=== PATIENT | female | born 1980 | race Caucasian/White ===

== ENCOUNTER 2020-10-19 15:38 | Emergency (ER) | payer OTHER ==
[2020-10-19] MEDS ORDERED: Ondansetron PF 4 MG/2 ML Vial ONE (16:01)
[2020-10-19] MEDS ORDERED: Ketorolac Tromethamine 30 MG/ML VIAL ONE (16:01)
[2020-10-19 16:12] LABS: #Basophils 0.1 10x3/uL (0.0-0.2); #Eosinphils 0.5 10x3/uL (0.0-0.5); #Monocytes 0.6 10x3/uL (0.0-1.1); #Neutrophils 7.9 10x3/uL (1.5-8.4); %Basophils 0.5 % (0.0-2.0); %Eosinophils 3.7 % (0.0-6.0); %Monocytes 4.6 % (0.0-10.0); %Neutrophils 61.7 % (40.0-75.0); Hemoglobin 13.4 g/dL (12.0-15.5); Mean Corpuscular HGB CONC 31.8 g/dL (32.0-36.0); Mean Corpuscular Volume 81.6 fl (81.6-98.3); Mean Platelet Volume 10.5 fl (7.4-10.4); Platelet Count 372 10x3/uL (150-450); RBC Distribution Width 14.4 % (11.5-14.5); Red Blood Cell (RBC) Count 5.16 10x6/uL (3.90-5.03); White Blood Cell (WBC) Count 12.9 10x3/uL (3.5-10.5)
[2020-10-19 16:24] LABS: BHCG - Serum Negative (NEGATIVE); Pregs Control Background? CLEAR/WHITE (CLR/WHITE); Pregs Control Bar Appear? YES (CONTROL BAR)
[2020-10-19 16:31] LABS: ALT (SGPT) 55 U/L (8-55); AST (SGOT) 37 U/L (5-34); Albumin 4.6 g/dL (3.5-5.0); Alkaline Phosphatase 102 U/L (40-110); Anion Gap 16 mmol/L (10-20); BUN (Urea Nitrogen) 7 mg/dL (7.0-18.7); Bilirubin, Total 0.3 mg/dL (0.2-1.2); Calc. Creatinine Clearance 0 mL/min (70-130); Calcium 10.4 mg/dL (7.8-10.44); Carbon Dioxide 21 mmol/L (22-29); Chloride 105 mmol/L (98-107); Globulin 3.9 g/dL (2.4-3.5); Glucose 90 mg/dL (70-105); Protein, Total 8.5 g/dL (6.0-8.3); Sodium 138 mmol/L (136-145)
[2020-10-19] MEDS ORDERED: Meclizine HCl 25 MG TAB ONE (16:42)
[2020-10-19 16:46] LABS: Bilirubin Neg (Negative); Blood, Urine 250 (Negative); Clarity Cloudy (Clear); Glucose, Urine (Dipstick) Normal (Negative); Ketone, Urine Negative (Negative); Leukocyte 500 (Negative); Nitrite Negative (Negative); Protein, Urine (Dipstick) 30 mg/dl (Neg-Trace); Specific Gravity, Urine 1.015 (1.002-1.036); Urobilinogen Normal mg/dL (Less than 2)
[2020-10-19 16:59] LABS: WBC/HPF Greater Than 50 HPF (0-3)
[2020-10-19 17:00] LABS: Bacteria/HPF 2+ HPF (None Seen); Mucous/LPF 1+ LPF (<2+); Oval Fat Bodies/HPF Rare HPF (None Seen)
[2020-10-19] MEDS ORDERED: traMADol HCl 50 MG TAB ONE (18:09)
[2020-10-19] MEDS ORDERED: Lidocaine 1% (PF) 30 ML VIAL ONE (18:21)
[2020-10-19] MEDS ORDERED: cefTRIAXone\\ROCEPHIN 1 GM VIAL ONE (18:21)
[2020-10-21 20:09] LABS: Chlamydia by PCR Not Detected (NotDetected); GC by PCR Not Detected (NotDetected)
== END 2020-10-19 19:31 | disposition home or self-care (01) ==
LOC: CSHERS 15:38
DX: B37.3 Candidiasis of vulva and vagina (principal); N39.0 Urinary tract infection, site not specified; F17.210 Nicotine dependence, cigarettes, uncomplicated
CPT/HCPCS: 36416; 80053; 81003; 81015; 84703; 85025; 87480; 87491; 87510; 87591; 87660; 93005; 96372; 96374; 96375; J0696; J1885; J2001; J2405

== ENCOUNTER 2021-03-26 09:57 | Emergency (ER) | payer OTHER ==
[2021-03-26 10:30] LABS: Bilirubin Neg (Negative); Blood, Urine Negative (Negative); Clarity Slightly Cloudy (Clear); Glucose, Urine (Dipstick) Normal (Negative); Ketone, Urine Negative (Negative); Leukocyte 500 (Negative); Nitrite Negative (Negative); Protein, Urine (Dipstick) Negative (Neg-Trace); Specific Gravity, Urine 1.015 (1.002-1.036); Urobilinogen Normal mg/dL (Less than 2)
[2021-03-26 10:51] LABS: Bacteria/HPF 3+ HPF (None Seen); RBC/HPF 0-3 HPF (0-3); WBC/HPF 21-50 HPF (0-3)
[2021-03-26 10:52] LABS: Sperm/HPF Rare HPF (None Seen)
[2021-03-26] MEDS ORDERED: Promethazine HCl 25 MG/ML VIAL ONE (10:53)
[2021-03-26] MEDS ORDERED: Ketorolac Tromethamine 30 MG/ML VIAL ONE (10:53)
[2021-03-26 11:23] LABS: #Basophils 0.1 10x3/uL (0.0-0.2); #Eosinphils 0.4 10x3/uL (0.0-0.5); #Monocytes 0.7 10x3/uL (0.0-1.1); #Neutrophils 6.2 10x3/uL (1.5-8.4); %Basophils 0.5 % (0.0-2.0); %Eosinophils 3.2 % (0.0-6.0); %Lymphocytes 34.1 % (18.0-47.0); %Monocytes 6.5 % (0.0-10.0); %Neutrophils 55.3 % (40.0-75.0); Hemoglobin 12.4 g/dL (12.0-15.5); Mean Corpuscular HGB CONC 30.8 g/dL (32.0-36.0); Mean Corpuscular Volume 81.3 fl (81.6-98.3); Mean Platelet Volume 10.6 fl (7.4-10.4); Platelet Count 341 10x3/uL (150-450); RBC Distribution Width 14.6 % (11.5-14.5); Red Blood Cell (RBC) Count 4.96 10x6/uL (3.90-5.03); White Blood Cell (WBC) Count 11.2 10x3/uL (3.5-10.5)
[2021-03-26 11:57] LABS: ALT (SGPT) 21 U/L (8-55); AST (SGOT) 15 U/L (5-34); Albumin 4.4 g/dL (3.5-5.0); Alkaline Phosphatase 94 U/L (40-110); Anion Gap 13 mmol/L (10-20); BUN (Urea Nitrogen) 9 mg/dL (7.0-18.7); Bilirubin, Total 0.2 mg/dL (0.2-1.2); Calc. Creatinine Clearance 0 mL/min (70-130); Calcium 9.8 mg/dL (7.8-10.44); Carbon Dioxide 24 mmol/L (22-29); Chloride 102 mmol/L (98-107); Globulin 3.5 g/dL (2.4-3.5); Glucose 95 mg/dL (70-105); Lipase 12 U/L (8-78); Protein, Total 7.9 g/dL (6.0-8.3); Sodium 135 mmol/L (136-145)
== END 2021-03-26 12:02 | disposition home or self-care (01) ==
LOC: CSHERS 09:57
DX: N39.0 Urinary tract infection, site not specified (principal); F17.210 Nicotine dependence, cigarettes, uncomplicated; K21.9 Gastro-esophageal reflux disease without esophagitis; D64.9 Anemia, unspecified; K90.0 Celiac disease; M19.90 Unspecified osteoarthritis, unspecified site; E66.9 Obesity, unspecified
CPT/HCPCS: 74177; 80053; 81003; 81015; 83605; 83690; 85025; 96365; 96375; J1885; J2550

== ENCOUNTER 2021-12-18 15:25 | Emergency (ER) | payer OTHER ==
[~2021-12-18 15:25] MED LIST: Iopamidol 300 61% 100 ML VIAL FS ONE
[2021-12-18 16:40] LABS: SARS-CoV-2 NAA Rapid Test Not Detected (NotDetected)
[2021-12-18] MEDS ORDERED: Ondansetron PF 4 MG/2 ML Vial ONE (16:46)
[2021-12-18 17:07] LABS: Bilirubin Neg (Negative); Blood, Urine 10 (Negative); Clarity Sl. Cloudy (Clear); Glucose, Urine (Dipstick) Normal (Negative); Ketone, Urine 15 mg/dL (Negative); Leukocyte 500 (Negative); Nitrite Negative (Negative); Protein, Urine (Dipstick) 30 mg/dl (Neg-Trace); Urobilinogen Normal mg/dL (Less than 2)
[2021-12-18] MEDS ORDERED: Ketorolac Tromethamine 30 MG/ML VIAL ONE (17:18)
[2021-12-18 17:25] LABS: #Basophils 0.1 10x3/uL (0.0-0.2); #Eosinphils 0.2 10x3/uL (0.0-0.5); #Monocytes 0.6 10x3/uL (0.0-1.1); #Neutrophils 12.6 10x3/uL (1.5-8.4); %Basophils 0.3 % (0.0-2.0); %Eosinophils 1.2 % (0.0-6.0); %Lymphocytes 6.4 % (18.0-47.0); %Monocytes 3.9 % (0.0-10.0); %Neutrophils 87.8 % (40.0-75.0); Hemoglobin 14.8 g/dL (12.0-15.5); Mean Corpuscular HGB CONC 33.1 g/dL (32.0-36.0); Mean Corpuscular Volume 81.6 fl (81.6-98.3); Mean Platelet Volume 10.2 fl (7.4-10.4); Platelet Count 316 10x3/uL (150-450); RBC Distribution Width 14.1 % (11.5-14.5); Red Blood Cell (RBC) Count 5.48 10x6/uL (3.90-5.03); White Blood Cell (WBC) Count 14.4 10x3/uL (3.5-10.5)
[2021-12-18 17:32] LABS: BHCG - Serum Negative (NEGATIVE); Pregs Control Background? CLEAR/WHITE (CLR/WHITE); Pregs Control Bar Appear? YES (CONTROL BAR)
[2021-12-18 17:42] LABS: ALT (SGPT) 24 U/L (8-55); AST (SGOT) 17 U/L (5-34); Albumin 4.8 g/dL (3.5-5.0); Alkaline Phosphatase 111 U/L (40-110); Anion Gap 16 mmol/L (10-20); BUN (Urea Nitrogen) 15 mg/dL (7.0-18.7); Bilirubin, Total 0.7 mg/dL (0.2-1.2); Calc. Creatinine Clearance 0 mL/min (70-130); Carbon Dioxide 21 mmol/L (22-29); Chloride 104 mmol/L (98-107); Estimated GFR 111; Globulin 3.5 g/dL (2.4-3.5); Glucose 119 mg/dL (70-105); Lipase 17 U/L (8-78); Potassium 3.9 mmol/L (3.5-5.1); Protein, Total 8.3 g/dL (6.0-8.3); Sodium 137 mmol/L (136-145)
[2021-12-18 17:50] LABS: Bacteria/HPF 2+ HPF (None Seen); RBC/HPF 0-3 HPF (0-3); Transitional Epithelial 0-3 HPF (None Seen); WBC/HPF 21-50 HPF (0-3)
[2021-12-18 17:51] LABS: Epithelial Cast 0-3 LPF (None Seen)
[2021-12-18] MEDS ORDERED: Morphine 2 MG/ML VIAL ONE (18:14)
[2021-12-18] MEDS ORDERED: Promethazine HCl 25 MG/ML VIAL ONE (18:14)
[2021-12-18] MEDS ORDERED: cefTRIAXone\\ROCEPHIN 2 GM VIAL ONE (18:29)
== END 2021-12-18 20:45 | disposition home or self-care (01) ==
LOC: CSHERS 15:25
DX: N10 Acute pyelonephritis (principal); K21.9 Gastro-esophageal reflux disease without esophagitis; E66.9 Obesity, unspecified; F17.210 Nicotine dependence, cigarettes, uncomplicated; Z20.822 Contact with and (suspected) exposure to COVID-19
CPT/HCPCS: 36415; 74177; 80053; 81003; 81015; 83690; 84703; 85025; 87040; 87086; 96361; 96365; 96367; 96375; J0696; J1885; J2270; J2405; J2550; Q9967

== ENCOUNTER 2022-10-01 15:03 | Emergency (ER) | payer OTHER ==
[2022-10-01 17:45] LABS: #Basophils 0.1 10x3/uL (0.0-0.2); #Eosinphils 0.4 10x3/uL (0.0-0.5); #Monocytes 0.8 10x3/uL (0.0-1.1); #Neutrophils 9.1 10x3/uL (1.5-8.4); %Basophils 0.4 % (0.0-2.0); %Eosinophils 2.6 % (0.0-6.0); %Monocytes 5.3 % (0.0-10.0); %Neutrophils 64.3 % (40.0-75.0); Hematocrit 42.6 % (34.9-44.5); Hemoglobin 13.8 g/dL (12.0-15.5); Mean Corpuscular HGB CONC 32.4 g/dL (32.0-36.0); Mean Corpuscular Hemoglobin 27.5 pg (27.0-33.0); Mean Corpuscular Volume 84.9 fl (81.6-98.3); Mean Platelet Volume 10.7 fl (7.4-10.4); Platelet Count 307 10x3/uL (150-450); Red Blood Cell (RBC) Count 5.02 10x6/uL (3.90-5.03); White Blood Cell (WBC) Count 14.1 10x3/uL (3.5-10.5)
[2022-10-01] MEDS ORDERED: methylPREDNISolone Sod Succ/PF 125 MG/2 ML VIAL ONE (17:55)
[2022-10-01] MEDS ORDERED: Ketorolac Tromethamine 30 MG/ML VIAL ONE (17:56)
[2022-10-01] MEDS ORDERED: Metoclopramide HCl 10 MG/2 ML VIAL ONE ×2 (17:56→19:12)
[2022-10-01 17:58] LABS: ALT (SGPT) 19 U/L (8-55); AST (SGOT) 16 U/L (5-34); Albumin 4.4 g/dL (3.5-5.0); Alkaline Phosphatase 83 U/L (40-110); Anion Gap 15 mmol/L (10-20); BUN (Urea Nitrogen) 10 mg/dL (7.0-18.7); Bilirubin, Total 0.2 mg/dL (0.2-1.2); CK (CPK) 41 U/L (29-168); Calc. Creatinine Clearance 0 mL/min (70-130); Calcium 9.6 mg/dL (7.8-10.44); Carbon Dioxide 26 mmol/L (22-29); Chloride 105 mmol/L (98-107); Estimated GFR 112; Glucose 85 mg/dL (70-105); Potassium 3.6 mmol/L (3.5-5.1); Protein, Total 7.4 g/dL (6.0-8.3); Sodium 142 mmol/L (136-145)
[2022-10-01] MEDS ORDERED: Promethazine HCl 25 MG in Sodium Chloride 0.9% 50 ML IVPB SCH (19:30)
== END 2022-10-01 20:38 | disposition home or self-care (01) ==
LOC: CSHERS 15:03
DX: S09.90XA Unspecified injury of head, initial encounter (principal); K21.9 Gastro-esophageal reflux disease without esophagitis; E66.9 Obesity, unspecified; F17.210 Nicotine dependence, cigarettes, uncomplicated; W18.30XA Fall on same level, unspecified, initial encounter
CPT/HCPCS: 70450; 72125; 80053; 82550; 85025; 93005; 96365; 96375; J1885; J2550; J2765; J2930